=== PATIENT | female | born 2005 | race Caucasian/White ===

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

== ENCOUNTER 2024-03-19 20:38 | Emergency (ER) | payer OTHER, MEDICAID ==
[2024-03-19 20:53] VITALS: BP 140/80; O2SAT 100
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
== END 2024-03-19 22:06 | disposition home or self-care (01) ==
LOC: ED 20:38
DX: S29.9XXA Unspecified injury of thorax, initial encounter (principal); V43.62XA Car passenger injured in collision with other type car in traffic accident, initial encounter; Y93.I9 Activity, other involving external motion; Y92.410 Unspecified street and highway as the place of occurrence of the external cause
CPT/HCPCS: 99283